=== PATIENT | female | born 1955 | race African-American/Black ===

== ENCOUNTER → 2017-04-18 | Outpatient (CLI) | payer MEDICARE, MEDICAID ==
[2017-04-18 13:33] LABS: BASOPHILS % (AUTO) 0.3 % (0.0-2.0); EOSINOPHILS % (AUTO) 1.3 % (1.0-6.0); HEMATOCRIT 31.5 % (36-46); HEMOGLOBIN 10.6 g/dL (12.0-16.0); LYMPHOCYTES # (AUTO) 1.1 K/uL (1.0-4.8); LYMPHOCYTES % (AUTO) 22.9 % (22.0-44.0); MEAN CORPUSCULAR HEMOGLOBIN 31.9 pg (26.0-34.0); MEAN CORPUSCULAR HGB CONC 33.6 G/dL (31.0-37.0); MEAN CORPUSCULAR VOLUME 95 fL (80-100); MONOCYTES # (AUTO) 0.3 K/uL (0.1-1.0); MONOCYTES % (AUTO) 6.3 % (2.0-9.0); NEUTROPHILS # (AUTO) 3.3 K/uL (1.8-7.7); NEUTROPHILS % (AUTO) 69.2 % (40.0-70.0); PLATELET COUNT (AUTO) 180 K/uL (150-450); RED BLOOD CELL COUNT(AUTO) 3.32 MIL/uL (4.00-5.20); RED CELL DISTRIBUTION WIDTH 13.5 % (11.5-14.5)
[2017-04-18 13:50] LABS: PROTHROMBIN TIME 10.7 SEC (9.4-11.6)
[2017-04-18 14:08] LABS: % IRON SATURATION 29.7 % (22-44)
[2017-04-18 14:20] LABS: ALBUMIN 3.5 g/dL (3.4-5.0); BILIRUBIN,TOTAL 0.5 mg/dL (0.1-1.0); CREATININE 4.67 mg/dL (0.60-1.30); PHOSPHORUS 4.4 mg/dL (2.5-4.9); POTASSIUM 4.2 mmol/L (3.5-5.1); TOTAL PROTEIN, SERUM 7.5 g/dL (6.4-8.2)
[2017-04-18 16:06] LABS: CREATININE,URINE 28.4 mg/dL (30.0-125.0)
[2017-04-18 16:08] LABS: CREATININE,SERUM FOR CRCL 4.67 mg/dL (0.60-1.30)
[2017-04-23 07:09] LABS: ALPHA-1 (IFE & PEP) 0.2 g/dL (0.0-0.4); GAMMA GLOBULINS (IFE & ELP) 1.1 g/dL (0.4-1.8); IGM (IMMUNOFIXATION) 218 mg/dL (26-217)
== END | disposition home or self-care (01) ==
LOC: LABPV 12:38
PROVIDERS: ATTEND Hospitalist
DX: N93.9 Abnormal uterine and vaginal bleeding, unspecified (principal); E78.5 Hyperlipidemia, unspecified; M10.9 Gout, unspecified; I12.0 Hypertensive chronic kidney disease with stage 5 chronic kidney disease or end stage renal disease
CPT/HCPCS: 81050; 82575; 82728; 82784; 83540; 83550; 84155; 84156; 84165; 84166; 84466; 86334; 87340

== ENCOUNTER → 2017-06-25 | Outpatient (CLI) | payer MEDICARE, MEDICAID ==
[2017-06-25 12:16] LABS: BASOPHILS % (AUTO) 0.6 % (0.0-2.0); EOSINOPHILS % (AUTO) 1.2 % (1.0-6.0); HEMOGLOBIN 10.4 g/dL (12.0-16.0); LYMPHOCYTES # (AUTO) 0.8 K/uL (1.0-4.8); LYMPHOCYTES % (AUTO) 14.4 % (22.0-44.0); MEAN CORPUSCULAR HEMOGLOBIN 30.9 pg (26.0-34.0); MEAN CORPUSCULAR HGB CONC 33.7 G/dL (31.0-37.0); MEAN CORPUSCULAR VOLUME 92 fL (80-100); MONOCYTES # (AUTO) 0.3 K/uL (0.1-1.0); MONOCYTES % (AUTO) 6.3 % (2.0-9.0); NEUTROPHILS # (AUTO) 4.1 K/uL (1.8-7.7); NEUTROPHILS % (AUTO) 77.5 % (40.0-70.0); PLATELET COUNT (AUTO) 164 K/uL (150-450); RED BLOOD CELL COUNT(AUTO) 3.39 MIL/uL (4.00-5.20); RED CELL DISTRIBUTION WIDTH 14.2 % (11.5-14.5)
[2017-06-25 12:23] LABS: APPEARANCE,URINE CLOUDY (CLEAR); BILIRUBIN,URINE NEGATIVE (NEGATIVE); GLUCOSE, URINE (UA) NEGATIVE (NEGATIVE); KETONES,URINE NEGATIVE (NEGATIVE); LEUKOCYTE ESTERASE ,URINE NEGATIVE (NEGATIVE); NITRATE,URINE NEGATIVE (NEGATIVE); OCCULT BLOOD,URINE NEGATIVE (NEGATIVE); PROTEIN,URINE SEE CONFIRM (NEGATIVE); UROBILINOGEN,URINE 0.2 mg/dL (<=1.0)
[2017-06-25 12:29] LABS: ALBUMIN 3.6 g/dL (3.4-5.0); CALCIUM, TOTAL 8.4 mg/dL (8.8-10.5); CREATININE 4.87 mg/dL (0.60-1.30); PHOSPHORUS 4.4 mg/dL (2.5-4.9); POTASSIUM 3.8 mmol/L (3.5-5.1)
[2017-06-25 12:36] LABS: SULFOSALICYLIC ACID,URINE 2+ (Negative)
[2017-06-25 12:46] LABS: BACTERIA,URINE Few /HPF (None Seen); SQUAMOUS EPITHELIAL CELL,UR Many /LPF (None Seen)
[2017-06-25 14:37] LABS: CREATININE,URINE RANDOM 56.6 mg/dL (30.0-125.0); PROTEIN,URINE RANDOM 79 mg/dL (0-11.9)
[2017-06-26 15:14] LABS: ALPHA-1 (IFE & PEP) 0.2 g/dL (0.0-0.4); GAMMA GLOBULINS (IFE & ELP) 1.1 g/dL (0.4-1.8); IGM (IMMUNOFIXATION) 191 mg/dL (26-217)
== END | disposition home or self-care (01) ==
LOC: LABPV 10:09
PROVIDERS: ATTEND Hospitalist
DX: I12.9 Hypertensive chronic kidney disease with stage 1 through stage 4 chronic kidney disease, or unspecified chronic kidney disease (principal); N18.4 Chronic kidney disease, stage 4 (severe); E21.4 Other specified disorders of parathyroid gland; R80.9 Proteinuria, unspecified
CPT/HCPCS: 82570; 82784; 83970; 84155; 84156; 84165; 84166; 86038; 86160; 86334; 86335

== ENCOUNTER → 2017-09-03 | Outpatient (CLI) | payer MEDICARE, MEDICAID ==
[2017-09-03 14:05] LABS: APPEARANCE,URINE CLEAR (CLEAR); BILIRUBIN,URINE NEGATIVE (NEGATIVE); GLUCOSE, URINE (UA) NEGATIVE (NEGATIVE); KETONES,URINE NEGATIVE (NEGATIVE); LEUKOCYTE ESTERASE ,URINE NEGATIVE (NEGATIVE); NITRATE,URINE NEGATIVE (NEGATIVE); OCCULT BLOOD,URINE NEGATIVE (NEGATIVE); PH,URINE 5.5 (5.0-8.0); PROTEIN,URINE SEE CONFIRM (NEGATIVE); UROBILINOGEN,URINE 0.2 mg/dL (<=1.0)
[2017-09-03 14:07] LABS: BASOPHILS % (AUTO) 0.5 % (0.0-2.0); EOSINOPHILS % (AUTO) 1.6 % (1.0-6.0); HEMOGLOBIN 10.9 g/dL (12.0-16.0); LYMPHOCYTES # (AUTO) 0.7 K/uL (1.0-4.8); LYMPHOCYTES % (AUTO) 15.2 % (22.0-44.0); MEAN CORPUSCULAR HEMOGLOBIN 30.9 pg (26.0-34.0); MEAN CORPUSCULAR HGB CONC 34.1 G/dL (31.0-37.0); MEAN CORPUSCULAR VOLUME 91 fL (80-100); MONOCYTES # (AUTO) 0.3 K/uL (0.1-1.0); MONOCYTES % (AUTO) 6.4 % (2.0-9.0); NEUTROPHILS # (AUTO) 3.5 K/uL (1.8-7.7); NEUTROPHILS % (AUTO) 76.3 % (40.0-70.0); PLATELET COUNT (AUTO) 169 K/uL (150-450); RED BLOOD CELL COUNT(AUTO) 3.54 MIL/uL (4.00-5.20); RED CELL DISTRIBUTION WIDTH 14.4 % (11.5-14.5)
[2017-09-03 14:17] LABS: SULFOSALICYLIC ACID,URINE 2+ (Negative)
[2017-09-03 14:18] LABS: BACTERIA,URINE None Seen /HPF (None Seen); RBC,URINE None Seen /HPF (0-2); WBC,URINE 0-2 /HPF (0-5)
[2017-09-03 14:19] LABS: SQUAMOUS EPITHELIAL CELL,UR Few /LPF (None Seen)
[2017-09-03 14:25] LABS: % IRON SATURATION 24.6 % (22-44); ALBUMIN 3.6 g/dL (3.4-5.0); CALCIUM, TOTAL 7.6 mg/dL (8.8-10.5); CREATININE 4.76 mg/dL (0.60-1.30); PHOSPHORUS 5.3 mg/dL (2.5-4.9); POTASSIUM 4.1 mmol/L (3.5-5.1); URIC ACID 6.7 mg/dL (2.6-7.2)
[2017-09-04 01:40] LABS: CREATININE,URINE RANDOM 36.9 mg/dL (30.0-125.0); PROTEIN,URINE RANDOM 55 mg/dL (0-11.9)
== END | disposition home or self-care (01) ==
LOC: LABPV 10:31
PROVIDERS: ATTEND Hospitalist
DX: N18.4 Chronic kidney disease, stage 4 (severe) (principal); D63.1 Anemia in chronic kidney disease; E21.4 Other specified disorders of parathyroid gland; R80.9 Proteinuria, unspecified
CPT/HCPCS: 82570; 82728; 83540; 83550; 84156; 84466; 84550

== ENCOUNTER → 2017-11-07 | Outpatient (CLI) | payer MEDICARE, MEDICAID ==
[2017-11-07 12:02] LABS: BASOPHILS % (AUTO) 0.3 % (0.0-2.0); EOSINOPHILS % (AUTO) 1.2 % (1.0-6.0); HEMATOCRIT 29.5 % (36-46); HEMOGLOBIN 10.1 g/dL (12.0-16.0); LYMPHOCYTES # (AUTO) 0.6 K/uL (1.0-4.8); LYMPHOCYTES % (AUTO) 17.5 % (22.0-44.0); MEAN CORPUSCULAR HEMOGLOBIN 30.8 pg (26.0-34.0); MEAN CORPUSCULAR HGB CONC 34.2 G/dL (31.0-37.0); MEAN CORPUSCULAR VOLUME 90 fL (80-100); MONOCYTES # (AUTO) 0.4 K/uL (0.1-1.0); MONOCYTES % (AUTO) 10.1 % (2.0-9.0); NEUTROPHILS # (AUTO) 2.6 K/uL (1.8-7.7); NEUTROPHILS % (AUTO) 70.9 % (40.0-70.0); PLATELET COUNT (AUTO) 147 K/uL (150-450); RED BLOOD CELL COUNT(AUTO) 3.27 MIL/uL (4.00-5.20); RED CELL DISTRIBUTION WIDTH 14.7 % (11.5-14.5)
[2017-11-07 12:18] LABS: % IRON SATURATION 21.3 % (22-44)
[2017-11-07 12:35] LABS: ALBUMIN 3.4 g/dL (3.4-5.0); CREATININE 4.64 mg/dL (0.60-1.30); PHOSPHORUS 5.5 mg/dL (2.5-4.9); POTASSIUM 4.2 mmol/L (3.5-5.1)
[2017-11-07 12:42] LABS: HEMOGLOBIN A1C 4.9 % (4.5-6.2)
[2017-11-07 13:16] LABS: APPEARANCE,URINE CLEAR (CLEAR); BILIRUBIN,URINE NEGATIVE (NEGATIVE); GLUCOSE, URINE (UA) NEGATIVE (NEGATIVE); KETONES,URINE NEGATIVE (NEGATIVE); LEUKOCYTE ESTERASE ,URINE NEGATIVE (NEGATIVE); NITRATE,URINE NEGATIVE (NEGATIVE); OCCULT BLOOD,URINE NEGATIVE (NEGATIVE); PROTEIN,URINE SEE CONFIRM (NEGATIVE); UROBILINOGEN,URINE 0.2 mg/dL (<=1.0)
[2017-11-07 13:30] LABS: SULFOSALICYLIC ACID,URINE 2+ (Negative)
[2017-11-07 13:31] LABS: BACTERIA,URINE Few /HPF (None Seen); RBC,URINE None Seen /HPF (0-2); WBC,URINE 0-2 /HPF (0-5)
[2017-11-07 13:32] LABS: SQUAMOUS EPITHELIAL CELL,UR Few /LPF (None Seen)
[2017-11-07 13:43] LABS: CREATININE,URINE RANDOM 45.1 mg/dL (30.0-125.0); PROTEIN,URINE RANDOM 63 mg/dL (0-11.9)
== END | disposition home or self-care (01) ==
LOC: LABPV 10:34
PROVIDERS: ATTEND Hospitalist
DX: R94.4 Abnormal results of kidney function studies (principal); R73.09 Other abnormal glucose; R82.90 Unspecified abnormal findings in urine; R79.89 Other specified abnormal findings of blood chemistry
CPT/HCPCS: 82570; 82728; 83036; 83540; 83550; 83970; 84156; 84466

== ENCOUNTER → 2018-01-16 | Outpatient (CLI) | payer MEDICARE, MEDICAID ==
[2018-01-16 16:22] LABS: APPEARANCE,URINE CLEAR (CLEAR); BASOPHILS % (AUTO) 0.8 % (0.0-2.0); BILIRUBIN,URINE NEGATIVE (NEGATIVE); EOSINOPHILS % (AUTO) 1.4 % (1.0-6.0); GLUCOSE, URINE (UA) NEGATIVE (NEGATIVE); HEMATOCRIT 29.7 % (36-46); HEMOGLOBIN 10.1 g/dL (12.0-16.0); KETONES,URINE NEGATIVE (NEGATIVE); LEUKOCYTE ESTERASE ,URINE NEGATIVE (NEGATIVE); LYMPHOCYTES # (AUTO) 0.7 K/uL (1.0-4.8); MEAN CORPUSCULAR HEMOGLOBIN 31.3 pg (26.0-34.0); MEAN CORPUSCULAR HGB CONC 34.1 G/dL (31.0-37.0); MEAN CORPUSCULAR VOLUME 92 fL (80-100); MONOCYTES # (AUTO) 0.3 K/uL (0.1-1.0); MONOCYTES % (AUTO) 8.1 % (2.0-9.0); NEUTROPHILS # (AUTO) 2.7 K/uL (1.8-7.7); NEUTROPHILS % (AUTO) 71.7 % (40.0-70.0); NITRATE,URINE NEGATIVE (NEGATIVE); OCCULT BLOOD,URINE NEGATIVE (NEGATIVE); PLATELET COUNT (AUTO) 143 K/uL (150-450); PROTEIN,URINE SEE CONFIRM (NEGATIVE); RED BLOOD CELL COUNT(AUTO) 3.24 MIL/uL (4.00-5.20); RED CELL DISTRIBUTION WIDTH 14.3 % (11.5-14.5); UROBILINOGEN,URINE 0.2 mg/dL (<=1.0)
[2018-01-16 16:25] LABS: PROTEIN,URINE RANDOM 70 mg/dL (0-11.9)
[2018-01-16 16:29] LABS: ALBUMIN 3.3 g/dL (3.4-5.0); CALCIUM, TOTAL 8.3 mg/dL (8.8-10.5); CREATININE 4.89 mg/dL (0.60-1.30); PHOSPHORUS 3.9 mg/dL (2.5-4.9); POTASSIUM 4.1 mmol/L (3.5-5.1)
[2018-01-16 17:03] LABS: SULFOSALICYLIC ACID,URINE 2+ (Negative)
[2018-01-16 17:05] LABS: BACTERIA,URINE None Seen /HPF (None Seen); RBC,URINE None Seen /HPF (0-2); SQUAMOUS EPITHELIAL CELL,UR Few /LPF (None Seen); WBC,URINE 0-2 /HPF (0-5)
[2018-01-17 11:26] LABS: CREATININE,URINE RANDOM 38.1 mg/dL (30.0-125.0)
== END | disposition home or self-care (01) ==
LOC: LABPV 13:49
PROVIDERS: ATTEND Hospitalist
DX: I12.0 Hypertensive chronic kidney disease with stage 5 chronic kidney disease or end stage renal disease (principal); N18.5 Chronic kidney disease, stage 5; R80.9 Proteinuria, unspecified; E55.9 Vitamin D deficiency, unspecified; E78.5 Hyperlipidemia, unspecified; D64.9 Anemia, unspecified; E21.4 Other specified disorders of parathyroid gland
CPT/HCPCS: 82306; 82570; 83970; 84156

== ENCOUNTER → 2018-05-29 | Outpatient (CLI) | payer MEDICARE, MEDICAID ==
[2018-05-29 14:20] LABS: BASOPHILS % (AUTO) 0.1 % (0.0-2.0); EOSINOPHILS % (AUTO) 0.7 % (1.0-6.0); HEMATOCRIT 32.5 % (36-46); HEMOGLOBIN 10.7 g/dL (12.0-16.0); LYMPHOCYTES # (AUTO) 0.8 K/uL (1.0-4.8); LYMPHOCYTES % (AUTO) 11.8 % (22.0-44.0); MEAN CORPUSCULAR HEMOGLOBIN 30.5 pg (26.0-34.0); MEAN CORPUSCULAR HGB CONC 32.9 G/dL (31.0-37.0); MEAN CORPUSCULAR VOLUME 93 fL (80-100); MONOCYTES # (AUTO) 0.5 K/uL (0.1-1.0); MONOCYTES % (AUTO) 7.3 % (2.0-9.0); NEUTROPHILS # (AUTO) 5.3 K/uL (1.8-7.7); NEUTROPHILS % (AUTO) 80.1 % (40.0-70.0); PLATELET COUNT (AUTO) 150 K/uL (150-450); RED BLOOD CELL COUNT(AUTO) 3.51 MIL/uL (4.00-5.20); RED CELL DISTRIBUTION WIDTH 14.3 % (11.5-14.5)
[2018-05-29 14:22] LABS: APPEARANCE,URINE CLEAR (CLEAR); BILIRUBIN,URINE NEGATIVE (NEGATIVE); GLUCOSE, URINE (UA) NEGATIVE (NEGATIVE); KETONES,URINE NEGATIVE (NEGATIVE); LEUKOCYTE ESTERASE ,URINE NEGATIVE (NEGATIVE); NITRATE,URINE NEGATIVE (NEGATIVE); OCCULT BLOOD,URINE NEGATIVE (NEGATIVE); PH,URINE 6.5 (5.0-8.0); PROTEIN,URINE SEE CONFIRM (NEGATIVE); UROBILINOGEN,URINE 0.2 mg/dL (<=1.0)
[2018-05-29 14:32] LABS: SULFOSALICYLIC ACID,URINE 3+ (Negative)
[2018-05-29 14:33] LABS: BACTERIA,URINE Rare /HPF (None Seen); RBC,URINE 0-2 /HPF (0-2); SQUAMOUS EPITHELIAL CELL,UR Few /LPF (None Seen); WBC,URINE 0-2 /HPF (0-5)
[2018-05-29 14:42] LABS: CREATININE,URINE RANDOM 44.6 mg/dL (30.0-125.0)
[2018-05-29 14:47] LABS: ALBUMIN 3.4 g/dL (3.4-5.0); CALCIUM, TOTAL 8.6 mg/dL (8.8-10.5); CREATININE 5.81 mg/dL (0.60-1.30); PHOSPHORUS 4.2 mg/dL (2.5-4.9); POTASSIUM 4.2 mmol/L (3.5-5.1)
[2018-05-29 14:48] LABS: % IRON SATURATION 12.9 % (22-44)
== END | disposition home or self-care (01) ==
LOC: LABPV 13:35
PROVIDERS: ATTEND Hospitalist
DX: I12.0 Hypertensive chronic kidney disease with stage 5 chronic kidney disease or end stage renal disease (principal); N18.5 Chronic kidney disease, stage 5; R80.0 Isolated proteinuria; D64.9 Anemia, unspecified
CPT/HCPCS: 82043; 82570; 83540; 83550

== ENCOUNTER → 2019-05-19 | Outpatient (CLI) | payer MEDICARE, MEDICAID ==
[2019-05-19 15:00] LABS: BASOPHILS % (AUTO) 0.3 % (0.0-2.0); HEMATOCRIT 23.8 % (36-46); HEMOGLOBIN 7.8 g/dL (12.0-16.0); LYMPHOCYTES # (AUTO) 0.8 K/uL (1.0-4.8); MEAN CORPUSCULAR HEMOGLOBIN 31.1 pg (26.0-34.0); MEAN CORPUSCULAR HGB CONC 32.7 G/dL (31.0-37.0); MEAN CORPUSCULAR VOLUME 95 fL (80-100); MONOCYTES # (AUTO) 0.3 K/uL (0.1-1.0); MONOCYTES % (AUTO) 7.9 % (2.0-9.0); NEUTROPHILS % (AUTO) 70.8 % (40.0-70.0); PLATELET COUNT (AUTO) 128 K/uL (150-450); RED CELL DISTRIBUTION WIDTH 15.9 % (11.5-14.5)
[2019-05-19 15:08] LABS: ALBUMIN 3.5 g/dL (3.4-5.0); CALCIUM, TOTAL 8.5 mg/dL (8.8-10.5); CREATININE 6.22 mg/dL (0.60-1.30); PHOSPHORUS 4.9 mg/dL (2.5-4.9); POTASSIUM 4.2 mmol/L (3.5-5.1)
[2019-05-19 15:16] LABS: % IRON SATURATION 38.4 % (22-44)
[2019-05-19 15:17] LABS: CREATININE,URINE RANDOM 54.8 mg/dL (30.0-125.0)
[2019-05-19 15:20] LABS: APPEARANCE,URINE CLOUDY (CLEAR); BILIRUBIN,URINE NEGATIVE (NEGATIVE); GLUCOSE, URINE (UA) NEGATIVE (NEGATIVE); KETONES,URINE NEGATIVE (NEGATIVE); LEUKOCYTE ESTERASE ,URINE NEGATIVE (NEGATIVE); NITRATE,URINE NEGATIVE (NEGATIVE); OCCULT BLOOD,URINE NEGATIVE (NEGATIVE); PH,URINE 5.5 (5.0-8.0); PROTEIN,URINE POS 1+ (NEGATIVE); UROBILINOGEN,URINE 0.2 mg/dL (<=1.0)
== END | disposition home or self-care (01) ==
LOC: LABPV 13:46
PROVIDERS: ATTEND Hospitalist
DX: I12.0 Hypertensive chronic kidney disease with stage 5 chronic kidney disease or end stage renal disease (principal); N18.5 Chronic kidney disease, stage 5; R80.0 Isolated proteinuria; D64.9 Anemia, unspecified
CPT/HCPCS: 82043; 82570; 83540; 83550

== ENCOUNTER 2022-09-12 12:09 | Inpatient (IN) | payer MEDICARE, MEDICAID ==
[~2022-09-12] VITALS: Ht 167.6 cm; Wt 69.9 kg
[2022-09-12] MEDS ORDERED: LORazepam 1 MG TABLET PO ONE (12:45)
[2022-09-12 13:04] LABS: BASOPHILS % (AUTO) 0.2 % (0.0-2.0); EOSINOPHILS % (AUTO) 1.5 % (1.0-6.0); HEMATOCRIT 36.9 % (36-46); LYMPHOCYTES % (AUTO) 18.4 % (22.0-44.0); MEAN CORPUSCULAR HEMOGLOBIN 31.5 pg (26.0-34.0); MEAN CORPUSCULAR HGB CONC 32.6 G/dL (31.0-37.0); MEAN CORPUSCULAR VOLUME 97 fL (80-100); MONOCYTES # (AUTO) 0.5 K/uL (0.1-1.0); MONOCYTES % (AUTO) 8.9 % (2.0-9.0); NEUTROPHILS # (AUTO) 3.8 K/uL (1.8-7.7); PLATELET COUNT (AUTO) 203 K/uL (150-450); RED BLOOD CELL COUNT(AUTO) 3.82 MIL/uL (4.00-5.20); RED CELL DISTRIBUTION WIDTH 16.4 % (11.5-14.5)
[2022-09-12 13:13] LABS: ANION GAP 13 mmol/L (8-16); CALCIUM, TOTAL 9.4 mg/dL (8.8-10.5); CARBON DIOXIDE 26 mmol/L (22-29); CHLORIDE 99 mmol/L (98-107); CREATININE 4.54 mg/dL (0.60-1.30); GLOMERULAR FILTR. RATE CALC 12 mL/min (>60); GLUCOSE,RANDOM 100 mg/dL (70-110); SODIUM SERUM 138 mmol/L (136-145)
[2022-09-12] MEDS ORDERED: RisperiDONE 1 MG TABLET PO ONE (13:15)
[2022-09-12 13:18] LABS: ALANINE AMINOTRANSFERASE 11 U/L (12-78); ALBUMIN 4.2 g/dL (3.4-5.0); ALKALINE PHOSPHATASE 107 U/L (46-116); ASPARTATE AMINOTRANSFERASE 21 U/L (15-37); BILIRUBIN,TOTAL 0.6 mg/dL (0.1-1.0); TOTAL PROTEIN, SERUM 8.4 g/dL (6.4-8.2)
[2022-09-12 14:37] LABS: COVID AG,FIA SOURCE NASOPHARYNGEAL
[2022-09-12] MEDS ORDERED: LORazepam 2 MG/ML VIAL IM ONE ×2 (17:00→21:45)
[2022-09-12] MEDS: QUEtiapine FUMARATE 100 MG TABLET PO PRN (20:25)
[2022-09-12 21:25] VITALS: RESP 18
[2022-09-12] MEDS ORDERED: DiphenhydrAMINE HCL 50 MG/ML VIAL IM ONE (21:45)
[2022-09-12] MEDS ORDERED: ChlorproMAZINE HCL 50 MG/2 ML AMP IM ONE (21:45)
[2022-09-12 23:14] VITALS: BP 148/87; PULSE 88; RESP 18; TEMP 97.6
[2022-09-13] MEDS ORDERED: LOPERAMIDE HCL 2 MG CAPSULE PO PRN ×2 (06:30→09:00)
[2022-09-13] MEDS ORDERED: GuaiFENesin/D-METHORPHAN [SUGAR-FREE] 200-20MG/10 ML SYRUP UDCUP PO PRN ×2 (06:30→09:00)
[2022-09-13] MEDS ORDERED: PETROLATUM,WHITE 28 GM JELLY TP PRN ×2 (06:30→09:00)
[2022-09-13] MEDS ORDERED: DOCUSATE SODIUM 100 MG CAPSULE PO PRN ×2 (06:30→09:00)
[2022-09-13] MEDS ORDERED: ONDANSETRON HCL 4 MG TABLET PO PRN ×2 (06:30→09:00)
[2022-09-13] MEDS ORDERED: ALBUTEROL SULFATE HFA 90 MCG/PUFF 8 GM INHALER IH PRN ×2 (06:30→09:00)
[2022-09-13] MEDS ORDERED: ACETAMINOPHEN 325 MG TABLET PO PRN ×2 (06:30→09:00)
[2022-09-13] MEDS ORDERED: IBUPROFEN 400 MG TABLET PO PRN (06:30)
[2022-09-13] MEDS ORDERED: MAG HYDROX/AL HYDROX/SIMETH ES 30 ML SUSPENSION UDCUP PO PRN ×2 (06:30→09:00)
[2022-09-13] MEDS ORDERED: NICOTINE 14 MG/24 HOUR PATCH TD PRN ×2 (06:30→09:00)
[2022-09-13] MEDS ORDERED: CloNIDine HCL 0.1 MG TABLET PO PRN ×2 (06:30→09:00)
[2022-09-13] MEDS ORDERED: MAGNESIUM HYDROXIDE SUSPENSION 30 ML UDCUP PO PRN ×2 (06:30→09:00)
[2022-09-13 07:13] LABS: BASOPHILS % (AUTO) 0.9 % (0.0-2.0); EOSINOPHILS % (AUTO) 1.8 % (1.0-6.0); HEMATOCRIT 39.1 % (36-46); HEMOGLOBIN 12.8 g/dL (12.0-16.0); LYMPHOCYTES % (AUTO) 18.1 % (22.0-44.0); MEAN CORPUSCULAR HEMOGLOBIN 31.1 pg (26.0-34.0); MEAN CORPUSCULAR HGB CONC 32.8 G/dL (31.0-37.0); MEAN CORPUSCULAR VOLUME 95 fL (80-100); MONOCYTES # (AUTO) 0.4 K/uL (0.1-1.0); NEUTROPHILS # (AUTO) 3.9 K/uL (1.8-7.7); NEUTROPHILS % (AUTO) 71.2 % (40.0-70.0); PLATELET COUNT (AUTO) 176 K/uL (150-450); RED BLOOD CELL COUNT(AUTO) 4.12 MIL/uL (4.00-5.20); RED CELL DISTRIBUTION WIDTH 16.1 % (11.5-14.5)
[2022-09-13 07:46] LABS: ALBUMIN 4.1 g/dL (3.4-5.0); BILIRUBIN,TOTAL 0.4 mg/dL (0.1-1.0); CALCIUM, TOTAL 9.4 mg/dL (8.8-10.5); CHOL/HDL RATIO 2.1 (3.9-5.7); CREATININE 6.76 mg/dL (0.60-1.30); POTASSIUM 4.3 mmol/L (3.5-5.1); THYROID STIMULATING HORMONE 1.65 uIU/mL (0.36-3.74); TOTAL PROTEIN, SERUM 8.2 g/dL (6.4-8.2)
[2022-09-13] MEDS: LORazepam 1 MG TABLET PO PRN ×3 (07:52→17:21)
[2022-09-13] MEDS: QUEtiapine FUMARATE 100 MG TABLET PO PRN ×3 (07:52→17:20)
[2022-09-13 09:36] VITALS: BP 166/85; PULSE 106; RESP 18; TEMP 97
[2022-09-13] MEDS: CALCIUM ACETATE 667 MG CAPSULE PO SCH (18:02)
[2022-09-13 20:16] VITALS: BP 155/88; PULSE 100; RESP 18; TEMP 97.4
[2022-09-13] MEDS ORDERED: FLUP5TAB8 PO (20:46)
[2022-09-13] MEDS: FluPHENAZine HCL 5 MG TABLET PO SCH (21:32)
[2022-09-14] VITALS (10 sets, daily range): BP systolic 136–173; BP diastolic 64–97; PULSE 68–104; RESP 16–19; TEMP 97.3–97.4
[2022-09-14] MEDS: CALCIUM ACETATE 667 MG CAPSULE PO SCH ×3 (07:12→18:31)
[2022-09-14] MEDS: LORazepam 1 MG TABLET PO PRN ×2 (08:06→20:58)
[2022-09-14] MEDS: FluPHENAZine HCL 5 MG TABLET PO SCH ×2 (08:07→20:58)
[2022-09-14] MEDS ORDERED: ChlorproMAZINE HCL 50 MG/2 ML AMP ONE (12:20)
[2022-09-14] MEDS ORDERED: LORazepam 2 MG/ML VIAL ONE (12:20)
[2022-09-14] MEDS ORDERED: ATOR20TA65 PO (12:22)
[2022-09-14] MEDS ORDERED: OMEP20CA12 PO (12:22)
[2022-09-14] MEDS ORDERED: CARV6.2534 PO (12:22)
[2022-09-14] MEDS ORDERED: CALC667T6 PO (12:22)
[2022-09-14] MEDS ORDERED: DICL100G31 TP (12:22)
[2022-09-14] MEDS ORDERED: ASPI-1522 PO (12:22)
[2022-09-14] MEDS ORDERED: TRAZ-252 PO (12:22)
[2022-09-14] MEDS ORDERED: ChlorproMAZINE HCL 50 MG/2 ML AMP IM ONE (12:30)
[2022-09-14] MEDS ORDERED: LORazepam 2 MG/ML VIAL IM ONE (12:30)
[2022-09-14] MEDS ORDERED: DiphenhydrAMINE HCL 50 MG/ML VIAL IVP ONE (12:50)
[2022-09-14] MEDS ORDERED: DiphenhydrAMINE HCL 50 MG/ML VIAL IM ONE (14:15)
[2022-09-14] MEDS: ZOLPIDEM TARTRATE 10 MG TABLET PO PRN (22:41)
[2022-09-15] MEDS: CALCIUM ACETATE 667 MG CAPSULE PO SCH ×3 (06:40→16:52)
[2022-09-15] MEDS: QUEtiapine FUMARATE 100 MG TABLET PO PRN ×3 (07:44→19:20)
[2022-09-15] MEDS: FluPHENAZine HCL 5 MG TABLET PO SCH ×2 (07:44→20:23)
[2022-09-15] MEDS: LORazepam 1 MG TABLET PO PRN ×3 (07:44→19:20)
[2022-09-15 08:24] VITALS: RESP 18
[2022-09-15] MEDS: ATORVASTATIN CALCIUM 20 MG TABLET PO SCH (21:16)
[2022-09-15] MEDS: ZOLPIDEM TARTRATE 10 MG TABLET PO PRN (21:17)
[2022-09-16] MEDS: CALCIUM ACETATE 667 MG CAPSULE PO SCH ×3 (06:36→17:34)
[2022-09-16 08:18] VITALS: BP 153/71; PULSE 97; RESP 17; TEMP 97.6
[2022-09-16] MEDS: OMEPRAZOLE 20 MG CAPSULE PO SCH (08:31)
[2022-09-16] MEDS: LORazepam 1 MG TABLET PO PRN (08:31)
[2022-09-16] MEDS: CARVEDILOL 6.25 MG TABLET PO SCH ×2 (08:31→17:34)
[2022-09-16] MEDS: ASPIRIN 81 MG DR TABLET PO SCH (08:31)
[2022-09-16] MEDS: FluPHENAZine HCL 5 MG TABLET PO SCH ×2 (08:32→20:39)
[2022-09-16] MEDS: QUEtiapine FUMARATE 100 MG TABLET PO PRN (10:15)
[2022-09-16] MEDS: ATORVASTATIN CALCIUM 20 MG TABLET PO SCH (20:39)
[2022-09-16 21:34] VITALS: RESP 18
[2022-09-17] VITALS (9 sets, daily range): BP systolic 108–153; BP diastolic 48–78; PULSE 69–81; RESP 16–18; TEMP 97.1
[2022-09-17] MEDS: CALCIUM ACETATE 667 MG CAPSULE PO SCH ×3 (06:35→17:09)
[2022-09-17] MEDS: CARVEDILOL 6.25 MG TABLET PO SCH ×2 (08:03→17:12)
[2022-09-17] MEDS: FluPHENAZine HCL 5 MG TABLET PO SCH ×2 (08:04→20:46)
[2022-09-17] MEDS: QUEtiapine FUMARATE 100 MG TABLET PO PRN (08:06)
[2022-09-17] MEDS: LORazepam 1 MG TABLET PO PRN (08:06)
[2022-09-17] MEDS: ASPIRIN 81 MG DR TABLET PO SCH (08:06)
[2022-09-17] MEDS: OMEPRAZOLE 20 MG CAPSULE PO SCH (08:07)
[2022-09-17] MEDS: ATORVASTATIN CALCIUM 20 MG TABLET PO SCH (20:46)
[2022-09-18] MEDS: CALCIUM ACETATE 667 MG CAPSULE PO SCH ×3 (06:55→17:10)
[2022-09-18] MEDS: CARVEDILOL 6.25 MG TABLET PO SCH ×2 (08:10→17:10)
[2022-09-18] MEDS: FluPHENAZine HCL 5 MG TABLET PO SCH ×2 (08:10→20:39)
[2022-09-18] MEDS: ASPIRIN 81 MG DR TABLET PO SCH (08:11)
[2022-09-18] MEDS: OMEPRAZOLE 20 MG CAPSULE PO SCH (08:12)
[2022-09-18 08:23] VITALS: BP 186/73; PULSE 100; RESP 18; TEMP 97
[2022-09-18 20:06] VITALS: RESP 18
[2022-09-18] MEDS: ATORVASTATIN CALCIUM 20 MG TABLET PO SCH (20:39)
[2022-09-19] VITALS (8 sets, daily range): BP systolic 105–135; BP diastolic 58–79; PULSE 76–89; RESP 16–18; TEMP 97.1–97.7
[2022-09-19] MEDS: CALCIUM ACETATE 667 MG CAPSULE PO SCH ×3 (07:04→16:07)
[2022-09-19] MEDS: CARVEDILOL 6.25 MG TABLET PO SCH ×2 (08:54→16:07)
[2022-09-19] MEDS: FluPHENAZine HCL 5 MG TABLET PO SCH ×2 (08:55→20:49)
[2022-09-19] MEDS: ASPIRIN 81 MG DR TABLET PO SCH (08:56)
[2022-09-19] MEDS: OMEPRAZOLE 20 MG CAPSULE PO SCH (08:56)
[2022-09-19] MEDS: ATORVASTATIN CALCIUM 20 MG TABLET PO SCH (20:50)
[2022-09-20] MEDS: CALCIUM ACETATE 667 MG CAPSULE PO SCH ×3 (07:07→17:22)
[2022-09-20 07:09] LABS: BASOPHILS % (AUTO) 0.1 % (0.0-2.0); EOSINOPHILS % (AUTO) 2.7 % (1.0-6.0); HEMATOCRIT 34.9 % (36-46); HEMOGLOBIN 11.6 g/dL (12.0-16.0); LYMPHOCYTES % (AUTO) 19.8 % (22.0-44.0); MEAN CORPUSCULAR HEMOGLOBIN 31.6 pg (26.0-34.0); MEAN CORPUSCULAR HGB CONC 33.2 G/dL (31.0-37.0); MEAN CORPUSCULAR VOLUME 95 fL (80-100); MONOCYTES # (AUTO) 0.4 K/uL (0.1-1.0); MONOCYTES % (AUTO) 7.9 % (2.0-9.0); NEUTROPHILS # (AUTO) 3.4 K/uL (1.8-7.7); NEUTROPHILS % (AUTO) 69.5 % (40.0-70.0); PLATELET COUNT (AUTO) 186 K/uL (150-450); RED BLOOD CELL COUNT(AUTO) 3.67 MIL/uL (4.00-5.20); RED CELL DISTRIBUTION WIDTH 16.2 % (11.5-14.5)
[2022-09-20 07:19] LABS: CALCIUM, TOTAL 8.1 mg/dL (8.8-10.5); CREATININE 6.8 mg/dL (0.60-1.30); POTASSIUM 4.9 mmol/L (3.5-5.1)
[2022-09-20 07:24] LABS: MAGNESIUM 2.1 mg/dL (1.80-2.40); PHOSPHORUS 3.2 mg/dL (2.5-4.9)
[2022-09-20] MEDS: CARVEDILOL 6.25 MG TABLET PO SCH ×2 (08:14→17:22)
[2022-09-20] MEDS: OMEPRAZOLE 20 MG CAPSULE PO SCH (08:14)
[2022-09-20] MEDS: ASPIRIN 81 MG DR TABLET PO SCH (08:14)
[2022-09-20] MEDS: FluPHENAZine HCL 5 MG TABLET PO SCH ×2 (08:14→20:24)
[2022-09-20 08:15] VITALS: BP 128/67; PULSE 85; RESP 17; TEMP 97.3
[2022-09-20] MEDS: LORazepam 1 MG TABLET PO PRN (14:48)
[2022-09-20] MEDS: FOLIC ACID/VIT B COMPLEX AND C TABLET PO SCH (17:22)
[2022-09-20] MEDS: ATORVASTATIN CALCIUM 20 MG TABLET PO SCH (20:24)
[2022-09-20 20:43] VITALS: BP 130/80; PULSE 84; RESP 18; TEMP 97.2
[2022-09-20] MEDS: ZOLPIDEM TARTRATE 10 MG TABLET PO PRN (21:06)
[2022-09-21] VITALS (11 sets, daily range): BP systolic 124–180; BP diastolic 65–87; PULSE 71–80; RESP 16–18; TEMP 96.8–97.9
[2022-09-21] MEDS: LORazepam 1 MG TABLET PO PRN (03:17)
[2022-09-21] MEDS: CALCIUM ACETATE 667 MG CAPSULE PO SCH ×3 (07:23→16:31)
[2022-09-21] MEDS: OMEPRAZOLE 20 MG CAPSULE PO SCH (09:31)
[2022-09-21] MEDS: FluPHENAZine HCL 5 MG TABLET PO SCH (09:32)
[2022-09-21] MEDS: FOLIC ACID/VIT B COMPLEX AND C TABLET PO SCH (09:32)
[2022-09-21] MEDS: ASPIRIN 81 MG DR TABLET PO SCH (09:32)
[2022-09-21] MEDS: CARVEDILOL 6.25 MG TABLET PO SCH ×2 (09:33→16:30)
[2022-09-21] MEDS ORDERED: FOLI0.8T2 PO (10:32)
[2022-09-21] MEDS ORDERED: FLUP5TAB31 PO (13:38)
[2022-09-21] MEDS ORDERED: ASPI-1450 PO (13:40)
[2022-09-21] MEDS ORDERED: ATOR20TA PO (13:40)
[2022-09-21] MEDS ORDERED: PHOSLOC PO (13:42)
[2022-09-21] MEDS ORDERED: OMEP20 PO (13:42)
[2022-09-21] MEDS ORDERED: DiphenhydrAMINE HCL 50 MG/ML VIAL IM ONE (18:07)
== END 2022-09-21 18:08 | disposition home or self-care (01) | DRG 885 ==
LOC: EMS 12:26 → 3EC 20:19
PROVIDERS: ADMIT Psychiatry & Neurology Psychiatry; ATTEND Psychiatry & Neurology Psychiatry
PROC: 5A1D70Z Performance of Urinary Filtration, Intermittent, Less than 6 Hours Per Day (ICD-10-PCS; principal; 2022-09-14)
PROC: 5A1D70Z Performance of Urinary Filtration, Intermittent, Less than 6 Hours Per Day (ICD-10-PCS; 2022-09-17)
PROC: 5A1D70Z Performance of Urinary Filtration, Intermittent, Less than 6 Hours Per Day (ICD-10-PCS; 2022-09-19)
PROC: 5A1D70Z Performance of Urinary Filtration, Intermittent, Less than 6 Hours Per Day (ICD-10-PCS; 2022-09-21)
DX: F25.0 Schizoaffective disorder, bipolar type (principal); I12.0 Hypertensive chronic kidney disease with stage 5 chronic kidney disease or end stage renal disease; N18.6 End stage renal disease; R45.851 Suicidal ideations; E78.5 Hyperlipidemia, unspecified; Z20.822 Contact with and (suspected) exposure to COVID-19; D63.1 Anemia in chronic kidney disease; K21.9 Gastro-esophageal reflux disease without esophagitis; Z99.2 Dependence on renal dialysis; Z79.899 Other long term (current) drug therapy; Z79.82 Long term (current) use of aspirin; Z88.8 Allergy status to other drugs, medicaments and biological substances
CPT/HCPCS: 80048; 80053; 80061; 83036; 83735; 84100; 84443; 85025; 87081; 87340; 90935; 99285; G0480; J1200; J2060; J3230

== ENCOUNTER 2022-10-27 17:45 | Emergency (ER) | payer MEDICARE, MEDICAID ==
[~2022-10-27] VITALS: Ht 157.5 cm; Wt 73.2 kg
[~2022-10-27 17:45] MED LIST: ASPI-1450 PO; ASPI-1522 PO; ATOR20TA PO; ATOR20TA65 PO; CALC667T6 PO; CARV6.2534 PO; FLUP5TAB31 PO; FLUP5TAB8 PO; FOLI0.8T2 PO; OMEP20 PO; OMEP20CA12 PO; PHOSLOC PO
[2022-10-27 17:47] VITALS: TEMP 98.2
[2022-10-27] MEDS ORDERED: ACET-2247 PO (18:03)
[2022-10-27] MEDS ORDERED: ACETAMINOPHEN/CODEINE 300-30 MG TABLET PO ONE (20:30)
[2022-10-27] MEDS ORDERED: ACET-2080 PO (21:00)
[2022-10-27 21:07] VITALS: BP 143/82; PULSE 68; RESP 18
== END 2022-10-27 21:15 | disposition home or self-care (01) ==
LOC: EMS 17:45
DX: M60.88 Other myositis, other site (principal); N18.6 End stage renal disease; F31.9 Bipolar disorder, unspecified; Z99.2 Dependence on renal dialysis; Z88.8 Allergy status to other drugs, medicaments and biological substances; V89.2XXA Person injured in unspecified motor-vehicle accident, traffic, initial encounter; Y93.89 Activity, other specified; Y92.89 Other specified places as the place of occurrence of the external cause; Y99.8 Other external cause status
CPT/HCPCS: 99283

== ENCOUNTER 2022-11-29 19:37 | Emergency (ER) | payer MEDICARE, MEDICAID ==
[~2022-11-29] VITALS: Ht 157.5 cm; Wt 70.5 kg
[~2022-11-29 19:37] MED LIST changes: +ACET-2080 PO; +ACET-2247 PO; -ASPI-1450 PO; -ATOR20TA PO; -FLUP5TAB8 PO; -FOLI0.8T2 PO; -OMEP20 PO; -PHOSLOC PO
[2022-11-29 19:39] VITALS: BP 172/92; PULSE 89; RESP 16; TEMP 99.2
[2022-11-29] MEDS ORDERED: ACETAMINOPHEN 500 MG TABLET PO ONE (20:15)
[2022-11-29] MEDS ORDERED: ONDANSETRON HCL 4 MG TABLET PO ONE (20:15)
[2022-11-29 20:40] LABS: BASOPHILS % (AUTO) 0.3 % (0.0-2.0); EOSINOPHILS % (AUTO) 2.4 % (1.0-6.0); HEMATOCRIT 35.6 % (36-46); HEMOGLOBIN 11.4 g/dL (12.0-16.0); LYMPHOCYTES % (AUTO) 19.4 % (22.0-44.0); MEAN CORPUSCULAR HGB CONC 31.9 G/dL (31.0-37.0); MEAN CORPUSCULAR VOLUME 97 fL (80-100); MONOCYTES # (AUTO) 0.4 K/uL (0.1-1.0); MONOCYTES % (AUTO) 7.3 % (2.0-9.0); NEUTROPHILS # (AUTO) 3.6 K/uL (1.8-7.7); NEUTROPHILS % (AUTO) 70.6 % (40.0-70.0); PLATELET COUNT (AUTO) 152 K/uL (150-450); RED BLOOD CELL COUNT(AUTO) 3.68 MIL/uL (4.00-5.20); RED CELL DISTRIBUTION WIDTH 17.1 % (11.5-14.5); WHITE BLOOD COUNT (AUTO) 5.2 K/uL (4.5-11.0)
[2022-11-29 20:45] LABS: ANION GAP 9 mmol/L (8-16); CALCIUM, TOTAL 8.5 mg/dL (8.8-10.5); CARBON DIOXIDE 28 mmol/L (22-29); CHLORIDE 98 mmol/L (98-107); CREATININE 5.97 mg/dL (0.60-1.30); GLOMERULAR FILTR. RATE CALC 9 mL/min (>60); GLUCOSE,RANDOM 130 mg/dL (70-110); POTASSIUM 4.2 mmol/L (3.5-5.1); SODIUM SERUM 135 mmol/L (136-145); UREA NITROGEN, BLOOD 34 mg/dL (7-18)
[2022-11-29 20:51] LABS: ALBUMIN 3.5 g/dL (3.4-5.0); ALKALINE PHOSPHATASE 88 U/L (46-116); ASPARTATE AMINOTRANSFERASE 17 U/L (15-37); BILIRUBIN,TOTAL 0.5 mg/dL (0.1-1.0); LIPASE 40 U/L (16-77); TOTAL PROTEIN, SERUM 7.1 g/dL (6.4-8.2)
[2022-11-29 20:54] LABS: ALANINE AMINOTRANSFERASE < 6 U/L (12-78)
[2022-11-29] MEDS ORDERED: ONDA-104 PO (20:58)
[2022-11-30] MEDS ORDERED: TRAZ-257 PO (11:40)
[2022-11-30] MEDS ORDERED: CETI5TAB12 PO (11:40)
[2022-11-30] MEDS ORDERED: FLUP5TAB8 PO (11:40)
[2022-11-30] MEDS ORDERED: FLUP10TA8 PO (11:40)
== END 2022-11-29 21:22 | disposition home or self-care (01) ==
LOC: EMS 19:38
DX: R11.2 Nausea with vomiting, unspecified (principal); R52 Pain, unspecified; F31.9 Bipolar disorder, unspecified; N18.6 End stage renal disease; Z99.2 Dependence on renal dialysis; Z88.8 Allergy status to other drugs, medicaments and biological substances
CPT/HCPCS: 99283; 80053; 83690; 85025; 36415; Q0162

== ENCOUNTER 2022-11-30 10:55 | Emergency (ER) | payer MEDICARE, MEDICAID ==
[~2022-11-30] VITALS: Ht 157.5 cm; Wt 68.2 kg
[~2022-11-30 10:55] MED LIST changes: +ONDA-104 PO
[2022-11-30] MEDS ORDERED: FLUP10TA8 PO (11:40)
[2022-11-30] MEDS ORDERED: FLUP5TAB8 PO (11:40)
[2022-11-30] MEDS ORDERED: CETI5TAB12 PO (11:40)
[2022-11-30] MEDS ORDERED: TRAZ-257 PO (11:40)
[2022-11-30 12:07] VITALS: BP 194/92; PULSE 84; RESP 16; TEMP 98.6
[2022-11-30] MEDS ORDERED: ONDANSETRON HCL 4 MG TABLET PO ONE (12:15)
[2022-11-30] MEDS ORDERED: ACETAMINOPHEN 500 MG TABLET PO ONE (12:15)
== END 2022-11-30 14:34 | disposition home or self-care (01) ==
LOC: EMS 10:56
DX: R51.9 Headache, unspecified (principal); F31.9 Bipolar disorder, unspecified; F20.9 Schizophrenia, unspecified; Z98.890 Other specified postprocedural states
CPT/HCPCS: 99284; 70450; 71045; Q0162

== ENCOUNTER 2022-12-02 01:14 | Emergency (ER) | payer MEDICARE, MEDICAID ==
[~2022-12-02 01:14] MED LIST changes: -ACET-2080 PO; +CETI5TAB12 PO; +FLUP10TA8 PO; -FLUP5TAB31 PO; +FLUP5TAB8 PO; -ONDA-104 PO; +TRAZ-257 PO
== END 2022-12-02 01:15 | disposition left against medical advice (07) ==
LOC: EMS 01:15
DX: Z53.21 Procedure and treatment not carried out due to patient leaving prior to being seen by health care provider (principal)

== ENCOUNTER 2023-08-01 21:46 | Emergency (ER) | payer MEDICARE, MEDICAID ==
[~2023-08-01] VITALS: Ht 157.5 cm; Wt 142.0 kg
[2023-08-02] MEDS: ACETAMINOPHEN 500 MG TABLET PO ONE (01:45)
[2023-08-02 05:05] VITALS: BP 134/71; PULSE 73; RESP 16; TEMP 98.3
== END 2023-08-02 05:34 | disposition home or self-care (01) ==
LOC: EMS 21:47
DX: S00.03XA Contusion of scalp, initial encounter (principal); N18.6 End stage renal disease; Z88.8 Allergy status to other drugs, medicaments and biological substances; Z79.899 Other long term (current) drug therapy; W10.1XXA Fall (on)(from) sidewalk curb, initial encounter; Y93.89 Activity, other specified; Y92.89 Other specified places as the place of occurrence of the external cause; Y99.8 Other external cause status
CPT/HCPCS: 70450; 99284

== ENCOUNTER 2023-12-07 13:54 | Inpatient (IN) | payer MEDICARE, MEDICAID ==
[~2023-12-07] VITALS: Ht 162.6 cm; Wt 67.0 kg
[2023-12-07 15:07] LABS: BASOPHILS % (AUTO) 0.2 % (0.0-2.0); EOSINOPHILS % (AUTO) 1.8 % (1.0-6.0); HEMATOCRIT 27.7 % (36-46); HEMOGLOBIN 8.9 g/dL (12.0-16.0); LYMPHOCYTES # (AUTO) 0.7 K/uL (1.0-4.8); LYMPHOCYTES % (AUTO) 37.9 % (22.0-44.0); MEAN CORPUSCULAR HGB CONC 32.1 G/dL (31.0-37.0); MEAN CORPUSCULAR VOLUME 109 fL (80-100); MONOCYTES # (AUTO) 0.2 K/uL (0.1-1.0); MONOCYTES % (AUTO) 11.9 % (2.0-9.0); NEUTROPHILS # (AUTO) 0.8 K/uL (1.8-7.7); NEUTROPHILS % (AUTO) 48.2 % (40.0-70.0); RED BLOOD CELL COUNT(AUTO) 2.54 MIL/uL (4.00-5.20); RED CELL DISTRIBUTION WIDTH 15.9 % (11.5-14.5); TROPONIN I-HIGH SENSITIVITY 31 ng/L (<51); WHITE BLOOD COUNT (AUTO) 1.7 K/uL (4.5-11.0)
[2023-12-07 15:14] LABS: CREATININE 4.63 mg/dL (0.60-1.30); POTASSIUM 3.4 mmol/L (3.5-5.1)
[2023-12-07 15:21] LABS: PLATELET COUNT (AUTO) 61 K/uL (150-450); RBC MORPHOLOGY COMMENT ABNORMAL RBC MORPH
[2023-12-07] MEDS ORDERED: [UNRECOGNIZED DRUG - CODE] PO (18:27)
[2023-12-07] MEDS ORDERED: SODIUM CHLORIDE 0.9% 250 ML IV ONE (18:27)
[2023-12-07] MEDS ORDERED: DIVA-112 PO (18:27)
[2023-12-07] MEDS: CefTRIAXone 1 GM/DEXTROSE 50 ML IV ONE (18:30)
[2023-12-07] MEDS ORDERED: 0.9% SODIUM CHLORIDE 10 ML SYRINGE IVP PRN (18:30)
[2023-12-07] MEDS ORDERED: ONDANSETRON HCL 4 MG/2 ML VIAL IVP PRN (18:30)
[2023-12-07] MEDS: SODIUM CHLORIDE 0.9% 250 ML IV ONE (18:30)
[2023-12-07 18:54] LABS: BASOPHILS % (AUTO) 0.1 % (0.0-2.0); EOSINOPHILS % (AUTO) 1.1 % (1.0-6.0); HEMATOCRIT 26.3 % (36-46); HEMOGLOBIN 8.5 g/dL (12.0-16.0); LYMPHOCYTES # (AUTO) 0.6 K/uL (1.0-4.8); LYMPHOCYTES % (AUTO) 35.7 % (22.0-44.0); MEAN CORPUSCULAR HEMOGLOBIN 35.2 pg (26.0-34.0); MEAN CORPUSCULAR HGB CONC 32.2 G/dL (31.0-37.0); MEAN CORPUSCULAR VOLUME 109 fL (80-100); MONOCYTES # (AUTO) 0.2 K/uL (0.1-1.0); MONOCYTES % (AUTO) 13.3 % (2.0-9.0); NEUTROPHILS # (AUTO) 0.8 K/uL (1.8-7.7); NEUTROPHILS % (AUTO) 49.8 % (40.0-70.0); PLATELET COUNT (AUTO) 47 K/uL (150-450); RED BLOOD CELL COUNT(AUTO) 2.41 MIL/uL (4.00-5.20); RED CELL DISTRIBUTION WIDTH 16.1 % (11.5-14.5); RETICULOCYTE % (AUTO) 2.1 % (0.5-2.3); WHITE BLOOD COUNT (AUTO) 1.6 K/uL (4.5-11.0)
[2023-12-07 19:02] LABS: % IRON SATURATION 58.6 % (22-44)
[2023-12-07 19:06] LABS: PLATELET MORPHOLOGY COMMENT NOTE; RBC MORPHOLOGY COMMENT ABNORMAL RBC MORPH
[2023-12-07 19:13] LABS: LACTIC ACID 0.5 mmol/L (0.4-2.0)
[2023-12-07 19:17] LABS: ANION GAP 8 mmol/L (8-16); CALCIUM, TOTAL 7.5 mg/dL (8.8-10.5); CARBON DIOXIDE 28 mmol/L (22-29); CHLORIDE 100 mmol/L (98-107); CREATININE 4.76 mg/dL (0.60-1.30); GLOMERULAR FILTR. RATE CALC 11 mL/min (>60); GLUCOSE,RANDOM 80 mg/dL (70-110); POTASSIUM 3.4 mmol/L (3.5-5.1); SODIUM SERUM 136 mmol/L (136-145); UREA NITROGEN, BLOOD 18 mg/dL (7-18)
[2023-12-07 19:22] LABS: ALBUMIN 2.5 g/dL (3.4-5.0); ALKALINE PHOSPHATASE 53 U/L (46-116); ASPARTATE AMINOTRANSFERASE 15 U/L (15-37); BILIRUBIN,TOTAL 0.4 mg/dL (0.1-1.0); LACTATE DEHYDROGENASE 222 U/L (81-234); TOTAL PROTEIN, SERUM 5.4 g/dL (6.4-8.2)
[2023-12-07 19:24] LABS: ALANINE AMINOTRANSFERASE 6 U/L (12-78)
[2023-12-07 20:20] VITALS: BP 210/87; PULSE 61; RESP 18; TEMP 97.8; O2SAT 94
[2023-12-07 21:00] VITALS: BP 172/85; PULSE 71; O2SAT 100
[2023-12-07] MEDS: FluPHENAZine HCL 10 MG TABLET PO SCH (21:00)
[2023-12-07] MEDS: CARVEDILOL 6.25 MG TABLET PO SCH (21:00)
[2023-12-07] MEDS: ATORVASTATIN CALCIUM 20 MG TABLET PO SCH (21:55)
[2023-12-07] MEDS: CALCIUM OYSTER SHELL 250 MG-VIT D3 125 UNITS[3.125MCG] TABLET PO SCH (21:56)
[2023-12-07] MEDS: HydrALAZINE HCL 20 MG/ML VIAL IVP PRN (21:56)
[2023-12-07 21:57] VITALS: BP 203/68; PULSE 63
[2023-12-07 22:00] VITALS: BP 181/81; PULSE 61
[2023-12-07 22:03] VITALS: BP 176/89
[2023-12-07 22:22] LABS: APPEARANCE,URINE CLEAR (CLEAR); BILIRUBIN,URINE NEGATIVE (NEGATIVE); COLOR,URINE COLORLESS (YELLOW); GLUCOSE, URINE (UA) NEGATIVE (NEGATIVE); KETONES,URINE NEGATIVE (NEGATIVE); LEUKOCYTE ESTERASE ,URINE NEGATIVE (NEGATIVE); NITRATE,URINE NEGATIVE (NEGATIVE); OCCULT BLOOD,URINE NEGATIVE (NEGATIVE); PH,URINE 6.5 (5.0-8.0); PROTEIN,URINE 30-70 mg/dL (NEGATIVE); SPECIFIC GRAVITIY, URINE 1.005 (1.003-1.030); UROBILINOGEN,URINE <=1.0 mg/dL (<=1.0)
[2023-12-08] VITALS (9 sets, daily range): BP systolic 145–185; BP diastolic 70–97; PULSE 66–77; RESP 16–18; TEMP 97.4–98.3; O2SAT 96–100
[2023-12-08] MEDS: NITROGLYCERIN 2% (1 GM=INCH) OINTMENT PACKET TP SCH (01:22)
[2023-12-08 07:08] LABS: CALCIUM, TOTAL 7.7 mg/dL (8.8-10.5); CREATININE 5.27 mg/dL (0.60-1.30); MAGNESIUM 1.9 mg/dL (1.80-2.40); POTASSIUM 3.3 mmol/L (3.5-5.1)
[2023-12-08 07:10] LABS: BASOPHILS % (AUTO) 0.2 % (0.0-2.0); EOSINOPHILS % (AUTO) 1.5 % (1.0-6.0); HEMATOCRIT 25.5 % (36-46); HEMOGLOBIN 8.4 g/dL (12.0-16.0); LYMPHOCYTES # (AUTO) 0.7 K/uL (1.0-4.8); LYMPHOCYTES % (AUTO) 38.5 % (22.0-44.0); MEAN CORPUSCULAR HEMOGLOBIN 35.5 pg (26.0-34.0); MEAN CORPUSCULAR HGB CONC 32.7 G/dL (31.0-37.0); MEAN CORPUSCULAR VOLUME 109 fL (80-100); MONOCYTES # (AUTO) 0.2 K/uL (0.1-1.0); MONOCYTES % (AUTO) 11.6 % (2.0-9.0); NEUTROPHILS # (AUTO) 0.9 K/uL (1.8-7.7); NEUTROPHILS % (AUTO) 48.2 % (40.0-70.0); PLATELET COUNT (AUTO) 51 K/uL (150-450); RED BLOOD CELL COUNT(AUTO) 2.35 MIL/uL (4.00-5.20); WHITE BLOOD COUNT (AUTO) 1.8 K/uL (4.5-11.0)
[2023-12-08 07:13] LABS: RBC MORPHOLOGY COMMENT ABNORMAL RBC MORPH
[2023-12-08] MEDS: CALCIUM ACETATE 667 MG CAPSULE PO SCH (08:46)
[2023-12-08] MEDS: FluPHENAZine HCL 5 MG TABLET PO SCH (08:46)
[2023-12-08] MEDS: ASPIRIN 81 MG DR TABLET PO SCH (08:46)
[2023-12-08] MEDS: ACETAMINOPHEN 325 MG TABLET PO PRN (08:47)
[2023-12-08] MEDS: POTASSIUM CHLORIDE 20 MEQ ER TABLET PO ONE (17:25)
[2023-12-08] MEDS: FOLIC ACID/VIT B COMPLEX AND C TABLET PO SCH (17:26)
[2023-12-09] VITALS (19 sets, daily range): BP systolic 130–207; BP diastolic 68–139; PULSE 42–94; RESP 18–20; TEMP 97.7–99.4; O2SAT 94–100
[2023-12-09 02:18] LABS: INFLUENZA TYPE A NEGATIVE FOR TYPE A (NEGATIVE); INFLUENZA TYPE B NEGATIVE FOR TYPE B (NEGATIVE)
[2023-12-09 07:22] LABS: ALBUMIN 2.9 g/dL (3.4-5.0); BILIRUBIN,TOTAL 0.5 mg/dL (0.1-1.0); CALCIUM, TOTAL 8.6 mg/dL (8.8-10.5); CREATININE 6.18 mg/dL (0.60-1.30); PHOSPHORUS 2.7 mg/dL (2.5-4.9); POTASSIUM 4.3 mmol/L (3.5-5.1); THYROID STIMULATING HORMONE 2.56 uIU/mL (0.36-3.74); TOTAL PROTEIN, SERUM 6.2 g/dL (6.4-8.2)
[2023-12-09] MEDS ORDERED: SODIUM CHLORIDE 0.9% 1,000 ML ONE (10:22)
[2023-12-09] MEDS: HydrALAZINE HCL 50 MG TABLET PO SCH (21:18)
[2023-12-10] VITALS (7 sets, daily range): BP systolic 129–166; BP diastolic 58–105; PULSE 72–92; RESP 18–19; TEMP 98.1–99.6; O2SAT 93–100
[2023-12-10] MEDS ORDERED: FOLI0.8T54 PO (14:46)
[2023-12-10] MEDS ORDERED: CALC-1275 PO (14:46)
[2023-12-10] MEDS ORDERED: HYDR50TA36 PO (14:47)
[2023-12-10] MEDS ORDERED: NITR1OIN TP (14:49)
[2023-12-10] MEDS ORDERED: ACET-2247 PO (14:50)
== END 2023-12-10 17:35 | DRG 871 ==
LOC: EMS 13:54 → EDH 17:55 → 5S 20:13
PROVIDERS: ADMIT Internal Medicine; ATTEND Internal Medicine
PROC: 5A1D70Z Performance of Urinary Filtration, Intermittent, Less than 6 Hours Per Day (ICD-10-PCS; principal; 2023-12-09)
DX: A41.9 Sepsis, unspecified organism (principal); G93.41 Metabolic encephalopathy; N18.6 End stage renal disease; D61.818 Other pancytopenia; I12.0 Hypertensive chronic kidney disease with stage 5 chronic kidney disease or end stage renal disease; N39.0 Urinary tract infection, site not specified; E87.6 Hypokalemia; F25.0 Schizoaffective disorder, bipolar type; R62.7 Adult failure to thrive; E78.5 Hyperlipidemia, unspecified; Z68.25 Body mass index [BMI] 25.0-25.9, adult; Z99.2 Dependence on renal dialysis
CPT/HCPCS: 71045; 71250; 72192; 74150; 80048; 80053; 81003; 82607; 83540; 83550; 83605; 83615; 83735; 84100; 84145; 84443; 84484; 85025; 85045; 85730; 87040; 87081; 87804; 90935; 93005; 97110; 97116; 97162; 97166; 97535; 99285; J0360; J0696; J7030; J7050; 36415-L1; 36415-TC